=== PATIENT | female | born 1985 | race Hispanic/Latino ===

== ENCOUNTER 2016-10-25 09:56 | Emergency (ER) | payer MEDICAID, OTHER ==
[2016-10-25 10:08] VITALS: BP 130/81; PULSE 80; RESP 16; TEMP 98.3; O2SAT 98; BMI 29.7
--- NOTE | 2016-10-25 10:23 | ED PDOC ---
Arrival/HPI - General Chief Complaint: Finger,Hand,&Wrist Time Seen by Provider: 10/25/16 10:17 Historian: Patient - History of Present Illness Narrative History of Present Illness (Text): 10/25/16 10:17 31 y/o female, pmh including chronic lt. hand thumb pain, nkda, c/o lt. hand thumb pain again today while lifting the suit case and twisted the lt. thumb x 2 hours. Aching pain, aggravated by movement, no numbness or tingling, no palpitation, no headache or night sweat, no palpitation, no chest pain or shortness of breath, no other medical or psychological complaints. Past Medical History - Provider Review Nursing Documentation Reviewed: Yes - Psychiatric Hx Substance Use: No Family/Social History Family/Social History: No Known Family HX Smoking Status: Never Smoked Hx Alcohol Use: No Hx Substance Use: No Allergies/Home Meds Allergies/Adverse Reactions: Allergies No Known Allergies Allergy (Verified 10/25/16 10:10) Review of Systems - Review of Systems Constitutional: absent: Fatigue, Fevers Eyes: absent: Vision Changes ENT: absent: Hearing Changes Respiratory: absent: SOB, Cough Cardiovascular: absent: Chest Pain Gastrointestinal: absent: Abdominal Pain, Nausea, Vomiting Musculoskeletal: Arthralgias. absent: Back Pain, Neck Pain, Joint Swelling, Myalgias Skin: absent: Rash, Pruritis Neurological: absent: Headache, Dizziness, Focal Weakness Psychiatric: absent: Anxiety, Depression, Suicidal Ideation Physical Exam Vital Signs Reviewed: Yes Vital Signs Temp Pulse Resp BP Pulse Ox 10/25/16 10:05 98.3 F 80 16 130/81 98 Temperature: Afebrile Blood Pressure: Normal Pulse: Regular Respiratory Rate: Normal Appearance: Positive for: Well-Appearing, Non-Toxic, Comfortable Pain Distress: Mild Mental Status: Positive for: Alert and Oriented X 3 - Systems Exam Head: Present: Atraumatic, Normocephalic Pupils: Present: PERRL Extroacular Muscles: Present: EOMI Conjunctiva: Present: Normal Mouth: Present: Moist Mucous Membranes Neck: Present: Normal Range of Motion Respiratory/Chest: Present: Clear to Auscultation, Good Air Exchange. No: Respiratory Distress, Accessory Muscle Use Cardiovascular: Present: Regular Rate and Rhythm, Normal S1, S2. No: Murmurs Abdomen: Present: Normal Bowel Sounds. No: Tenderness, Distention, Peritoneal Signs Back: Present: Normal Inspection Upper Extremity: Present: Normal Inspection, Other (Lt. hand/wrist: no tenderness or swelling, no scaphoid tenderness, no deformity, FROM without limitation, sensation intact, motor 5/5, +radial pulse, capillary refill< 2 seconds, neurovacular intact. ). No: Cyanosis, Edema Lower Extremity: Present: Normal Inspection. No: Edema Neurological: Present: GCS=15, CN II-XII Intact, Speech Normal Skin: Present: Warm, Dry, Normal Color. No: Rashes Psychiatric: Present: Alert, Oriented x 3, Normal Insight, Normal Concentration Medical Decision Making ED Course and Treatment: 10/25/16 10:38 -hand xray -thumb spica splint, sling -Discharge home with thumb spica splint, sling, naproxen, ice compression, follow up with your own pmd and hand specialist within 2 days, return to the ER for any new or worsening signs or symptoms. 10/25/16 11:25 -x-ray show no fracture or dislocation. - RAD Interpretation Radiology Orders: 10/25/16 10:23 HAND LEFT 3 VIEWS ROUTINE [RAD] Stat normal left hand radiograph Desolderer: Radiologist - Medication Orders Current Medication Orders: Discontinued Medications Ibuprofen (Motrin Tab) 600 mg PO STAT STA Stop: 10/25/16 10:59 Last Admin: 10/25/16 11:01 Dose: 600 mg - PA / PERSON[employer]ECUTIVE / Resident Statement / has reviewed & agrees with the documentation as recorded. Disposition/Present on Arrival - Present on Arrival Any Indicators Present on Arrival: No History of DVT/PE: No History of Uncontrolled Diabetes: No Urinary Catheter: No History of Decub. Ulcer: No History Surgical Site Infection Following: None - Disposition Have Diagnosis and Disposition been Completed?: Yes Diagnosis: Thumb injury, Thumb pain Disposition: HOME/ ROUTINE Disposition Time: 10:39 Patient Plan: Discharge Condition: GOOD Additional Instructions: Discharge home with thumb spica splint, sling, naproxen, ice compression, follow up with your own pmd and hand specialist within 2 days, return to the ER for any new or worsening signs or symptoms. Prescriptions: Naproxen 500 mg PO BID #22 tab Referrals: PCP,NO [Primary Care Provider] - Follow up with primary Chano Pulliam MD [Staff Provider] - [place] [facility] [place] [facility] [place] - Follow up with primary Forms: WORK NOTE
--- NOTE | 2016-10-25 13:14 | RAD ---
PROCEDURE: Left Hand Radiographs. HISTORY: lt. hand thumb pain s/p twisting injury COMPARISON: None. FINDINGS: BONES: Normal. No fracture. JOINTS: Normal. No osteoarthritic changes. SOFT TISSUES: Normal. OTHER FINDINGS: None. IMPRESSION: Normal left hand radiographs.
== END 2016-10-25 11:53 | disposition home or self-care (01) ==
LOC: ED 09:56
DX: S69.92XA Unspecified injury of left wrist, hand and finger(s), initial encounter (principal); X50.0XXA Overexertion from strenuous movement or load, initial encounter; Y93.89 Activity, other specified; Y92.89 Other specified places as the place of occurrence of the external cause

== ENCOUNTER 2016-11-28 12:00 | Emergency (ER) | payer MEDICAID ==
[2016-11-28 12:00] VITALS: BMI 29.7
[2016-11-28 12:08] VITALS: RESP 18; O2SAT 98
[2016-11-28] MEDS ORDERED: Lidocaine 1% Inj (20ml) ONE (12:13)
--- NOTE | 2016-11-28 12:18 | ED PDOC ---
Arrival/HPI - General Chief Complaint: Anxiety Time Seen by Provider: 11/28/16 12:09 Historian: Patient - History of Present Illness Narrative History of Present Illness (Text): 11/28/16 12:15 Tara Rowell is a 31 year old female, with a history of anxiety and panic attacks, presents to the emergency department for evaluation following a panic attack. States that this episode feels like previous panic attacks. Does not endorse any other complaints. Denies any chest pain, palpitations, shortness of breath, or dyspnea on exertion. Denies any suicidal or homicidal ideations. Time/Duration: 1-3 hours Symptom Onset: Sudden Symptom Course: Improving Severity Level: Mild Past Medical History - Provider Review Nursing Documentation Reviewed: Yes - Infectious Disease Hx of Infectious Diseases: None - Musculoskeletal/Rheumatological Other/Comment: Neck problems - Psychiatric Hx Anxiety: Yes Hx Substance Use: No Family/Social History - Physician Review Nursing Documentation Reviewed: Yes Family/Social History: No Known Family HX Smoking Status: Never Smoked Hx Alcohol Use: No Hx Substance Use: No Allergies/Home Meds Allergies/Adverse Reactions: Allergies ibuprofen [From Motrin] Allergy (Verified 11/28/16 12:11) VOMITING Home Medications: Home Meds Medication Instructions Recorded Confirmed No Known Home Med 11/28/16 11/28/16 Physical Exam - Physical Exam Narrative Physical Exam (Text): - Review of Systems Constitutional: Normal. absent: Fatigue, Weight Change, Fevers Eyes: Normal ENT: Normal Respiratory: Normal absent: SOB, Cough, Sputum Cardiovascular: Normal absent: Chest pain, Palpitations, Syncope Gastrointestinal: Normal absent: Abdominal pain, Diarrhea, Nausea, Vomiting Genitourinary: Normal. absent: Dysuria, Frequency, Hematuria Musculoskeletal: Normal. absent: Arthralgias, Back Pain, Neck Pain Skin: Normal Neurological: Normal absent: Focal Weakness Endocrine: Normal Hemo/Lymphatic: Normal Psychiatric: Panic attack - Physical exam Patient appears age appropriate, speaking full sentences without difficulty - Systems Exam Head: Present: Atraumatic, Normocephalic Pupils: Present: PERRL Extraocular Muscles: Present: EOMI Conjunctiva: Present: Normal Mouth: Present: Moist Mucous Membranes Neck: Present: Normal Range of Motion. No: MIDLINE TENDERNESS, Paraspinal Tenderness Respiratory/Chest: Present: Clear to Auscultation, Good Air Exchange. No: Respiratory Distress, Accessory Muscle Use, Tachypnic Cardiovascular: Present: Regular Rate and Rhythm, Normal S1, S2, Peripheral Pulses Present. No: Murmurs Abdomen: Present: Normal Bowel Sounds, No: Tenderness, Peritoneal Signs, Rebound, Guarding, Distention Back: Present: Normal Inspection. No: Midline Tenderness, Paraspinal Tenderness Upper Extremity: Present: Normal Inspection. No: Cyanosis, Edema Lower Extremity: Present: Normal Inspection. No: Edema Neurological: Present: GCS=15, Speech Normal, cranial nerves II through XII fully intact with no cerebellar abnormality, neuro-sensory fully intact. No focal neurological deficits. Skin: Present: Warm, Dry, Normal Color. No: Rashes Lymphatic: Present: OX3, NI, NC Psychiatric: Present: Alert, Oriented x 3, Normal Insight, Normal Concentration Vital Signs Reviewed: Yes Vital Signs Temp Pulse Resp BP Pulse Ox 11/28/16 12:14 18 98 11/28/16 12:08 97.8 F 73 18 131/78 98 Temperature: Afebrile Blood Pressure: Normal Pulse: Regular Respiratory Rate: Normal Appearance: Positive for: Well-Appearing, Non-Toxic, Comfortable Pain Distress: None Mental Status: Positive for: Alert and Oriented X 3 Medical Decision Making ED Course and Treatment: 11/28/16 12:19 Impression: A 31 year old female who presents to the emergency department complaining of panic attack. Differential Diagnosis included but are not limited to: Panic Attack Plan: -- Ativan -- Reassess and disposition Progress Notes: 11/28/16 13:26 on reeval, pt states she feels much better instructed to f/u with outpatient PMD in 1-2 days states she feels comfortable being dc'd home with outpatient f/u Pt states she understands to return to the ER right away for new or worsening symptoms or for inability to f/u with PMD or specialist as instructed. Patient states that she fully agrees with and understands discharge instructions. States that she agrees with the plan and disposition. Verbalized and repeated discharge instructions and plan. I have given the patient opportunity to ask any additional questions. - Medication Orders Current Medication Orders: Discontinued Medications Lidocaine HCl (Lidocaine 1% (20ml)) Confirm Administered Dose 20 ml .ROUTE .STK- MED ONE Stop: 11/28/16 12:14 Lorazepam (Ativan) 2 mg PO ONCE ONE PRN Reason: Protocol Stop: 11/28/16 12:15 Last Admin: 11/28/16 12:31 Dose: 2 mg - Scribe Statement The provider has reviewed the documentation as recorded by the Luz Maria Mcfadden Provider Attestation: Provider Luz Maria Attestation: All medical record entries made by the Lyndonibe were at my direction and personally dictated by me. I have reviewed the chart and agree that the record accurately reflects my personal performance of the history, physical exam, medical decision making, and the department course for this patient. I have also personally directed, reviewed, and agree with the discharge instructions and disposition. Disposition/Present on Arrival - Present on Arrival Any Indicators Present on Arrival: No History of DVT/PE: No History of Uncontrolled Diabetes: No Urinary Catheter: No History of Decub. Ulcer: No History Surgical Site Infection Following: None - Disposition Have Diagnosis and Disposition been Completed?: Yes Diagnosis: Panic attack Disposition: HOME/ ROUTINE Disposition Time: 13:27 Patient Plan: Discharge Condition: GOOD Discharge Instructions (ExitCare): Anxiety (ED), Panic Attack (ED) Additional Instructions: PLEASE RETURN TO THE EMERGENCY DEPARTMENT FOR NEW OR WORSENING SYMPTOMS. RETURN RIGHT AWAY IF YOU CANNOT FOLLOW UP WITH YOUR PRIMARY CARE DOCTOR, CLINIC, OR SPECIALIST IN 1-2 DAYS. Referrals: PCP,NO [Primary Care Provider] - Follow up with primary Soni Almaznar MD [Staff Provider] - Follow up with primary Hannah Raymond MD [Staff Provider] - Follow up with primary Forms: WORK NOTE
[2016-11-28 13:54] VITALS: BP 120/80; PULSE 70; TEMP 98
== END 2016-11-28 14:00 | disposition home or self-care (01) ==
LOC: ED 12:00
DX: F41.0 Panic disorder [episodic paroxysmal anxiety] (principal)

== ENCOUNTER 2018-10-04 15:30 | Emergency (ER) | payer SELFPAY ==
[2018-10-04 15:31] VITALS: BMI 29.7
== END 2018-10-04 16:02 | disposition left against medical advice (07) ==
LOC: ED 15:30
DX: Z02.89 Encounter for other administrative examinations (principal)